=== PATIENT | female | born 1960 | race Caucasian/White ===

== ENCOUNTER 2022-05-06 07:59 | Outpatient (CLI) | payer BC | END 2022-05-06 08:00 | disposition home or self-care (01) | LOC: CT 07:59 | PROVIDERS: ATTEND Specialist | DX: J33.8 Other polyp of sinus (principal); J32.9 Chronic sinusitis, unspecified ==

== ENCOUNTER 2022-05-06 08:17 | Day surgery (SDC) | payer BC ==
[2022-05-04 13:02] VITALS: BMI 17.4
[2022-05-06] MEDS ORDERED: Oxymetazoline HCl 0.05% (30 ML BOT) ONE ×2 (09:33→10:41)
[2022-05-06] MEDS ORDERED: PROPOFOL 200 MG/20 ML VIAL ONE (10:30)
[2022-05-06] MEDS ORDERED: ePHEDrine Sulfate 50 MG/10 ML VIAL ONE (10:30)
[2022-05-06] MEDS ORDERED: Ondansetron PF 4 MG/2 ML Vial ONE (10:30)
[2022-05-06] MEDS ORDERED: Dexamethasone 20 MG/5 ML VIAL ONE (10:30)
[2022-05-06] MEDS ORDERED: Rocuronium Bromide 10 MG/ML (10ML VIAL) ONE (10:30)
[2022-05-06] MEDS ORDERED: Glycopyrrolate 0.2 MG/ML 5 ML SYRINGE ONE (10:30)
[2022-05-06] MEDS ORDERED: Bacitracin Zinc Ointment 30 gm TUBE ONE (10:41)
[2022-05-06] MEDS ORDERED: Lidocaine 1% w/Epinephrine 1:100K 20 ML VIAL ONE (10:42)
[2022-05-06] MEDS ORDERED: EPINEPHrine 1 MG/ML AMP ONE ×2 (10:42→10:45)
[2022-05-06] MEDS ORDERED: fentaNYL Citrate/PF 100 MCG/2 ML SYRINGE ONE (10:48)
[2022-05-06] MEDS ORDERED: methylPREDNISolone Acetate 40 mg/ml Vial ONE (10:49)
[2022-05-06] MEDS ORDERED: Triamcinolone 40 MG/ML VIAL ONE (11:36)
[2022-05-06] MEDS ORDERED: Fentanyl 100 MCG/2 ML VIAL ONE (12:23)
[2022-05-06] MEDS ORDERED: HYDROcodone/Acetaminophen 5/325 mg Tablet ONE (13:53)
== END 2022-05-06 14:20 | disposition home or self-care (01) ==
LOC: SDC 08:17
PROVIDERS: ATTEND Specialist
PROC: 09BR8ZZ Excision of Left Maxillary Sinus, Via Natural or Artificial Opening Endoscopic (ICD-10-PCS; principal; 2022-05-06)
PROC: 099T8ZZ Drainage of Left Frontal Sinus, Via Natural or Artificial Opening Endoscopic (ICD-10-PCS; principal; 2022-05-06)
PROC: 099S8ZZ Drainage of Right Frontal Sinus, Via Natural or Artificial Opening Endoscopic (ICD-10-PCS; principal; 2022-05-06)
PROC: 09TV8ZZ Resection of Left Ethmoid Sinus, Via Natural or Artificial Opening Endoscopic (ICD-10-PCS; principal; 2022-05-06)
PROC: 09SM0ZZ Reposition Nasal Septum, Open Approach (ICD-10-PCS; principal; 2022-05-06)
PROC: 09TU8ZZ Resection of Right Ethmoid Sinus, Via Natural or Artificial Opening Endoscopic (ICD-10-PCS; principal; 2022-05-06)
PROC: 09SL8ZZ Reposition Nasal Turbinate, Via Natural or Artificial Opening Endoscopic (ICD-10-PCS; principal; 2022-05-06)
PROC: 09BQ8ZZ Excision of Right Maxillary Sinus, Via Natural or Artificial Opening Endoscopic (ICD-10-PCS; principal; 2022-05-06)
PROC: 8E09XBZ Computer Assisted Procedure of Head and Neck Region (ICD-10-PCS; principal; 2022-05-06)
PROC: 099R8ZZ Drainage of Left Maxillary Sinus, Via Natural or Artificial Opening Endoscopic (ICD-10-PCS; principal; 2022-05-06)
PROC: 099Q8ZZ Drainage of Right Maxillary Sinus, Via Natural or Artificial Opening Endoscopic (ICD-10-PCS; principal; 2022-05-06)
DX: J32.9 Chronic sinusitis, unspecified (principal); J34.2 Deviated nasal septum; J34.3 Hypertrophy of nasal turbinates; J33.8 Other polyp of sinus; F17.210 Nicotine dependence, cigarettes, uncomplicated; Z88.1 Allergy status to other antibiotic agents; Z88.6 Allergy status to analgesic agent
CPT/HCPCS: 85014; 88304; 93005; 93010; J0171; J1100; J2405; J2704; J2710; J2920; J3010; J3301